=== PATIENT | female | born 1965 | race Hispanic/Latino ===

== ENCOUNTER 2020-04-08 13:53 | Emergency (ER) | payer MEDICARE ==
[2020-04-08 15:10] LABS: Basophils # (Auto) 0.1 K/mm3 (0.0-0.1); Basophils % (Auto) 0.9 % (0.0-1.8); Eosinophils # (Auto) 0.2 K/mm3 (0.0-0.4); Eosinophils % (Auto) 2.6 % (0.0-4.3); Hematocrit 40.1 % (30.3-42.9); Hemoglobin 13.1 gm/dl (10.1-14.3); Lymphocytes # (Auto) 2.8 K/mm3 (1.2-5.4); Lymphocytes % (Auto) 43.4 % (13.4-35.0); Mean Corpuscular HGB Conc 33 % (30-34); Mean Corpuscular Volume 103 fl (79-97); Monocytes # (Auto) 0.4 K/mm3 (0.0-0.8); Monocytes % (Auto) 6.4 % (0.0-7.3); Platelet Count 563 K/mm3 (140-440); Red Blood Count 3.88 M/mm3 (3.65-5.03)
[2020-04-08 16:02] LABS: BUN/Creatinine Ratio 15; Blood Urea Nitrogen 12 mg/dL (7-17); Calcium 9.4 mg/dL (8.4-10.2); Hemolysis Index 5
--- NOTE | 2020-04-08 17:01 | Event Note ---
ED Screening Note Date of service: 04/08/20 Time: 17:00 ED Screening Note: Patient presents via EMS for psych eval She is hyperverbal and appears to be in a manic state She complains of diffuse body aches due to falls over many years No specific joint tenderness is noted on exam This initial assessment/diagnostic orders/clinical plan/treatment(s) is/are subject to change based on patients health status, clinical progression and re- assessment by fellow clinical providers in the ED. Further treatment and workup at subsequent clinical providers discretion. Patient/guardian urged not to elope from the ED as their condition may be serious if not clinically assessed and managed. Initial orders include: Labs Mental health eval
[2020-04-09 07:59] LABS: Amphetamine Screen,Urine Negative; Benzodiazepines Screen,Urine Negative; Cocaine Screen,Urine Negative; Methadone Screen,Urine Negative; Opiate Screen,Urine Negative
[2020-04-09 08:07] LABS: Bilirubin,Urine NEG (Negative); Blood,Urine NEG (Negative); Color,Urine Yellow (Yellow); Mucus,Urine FEW /HPF; Protein,Urine <15 mg/dL mg/dL (Negative); Urobilinogen,Urine < 2.0 mg/dL (<2.0)
[2020-04-09 08:14] LABS: Cannabinoid Screen,Urine Positive
--- NOTE | 2020-04-09 12:54 | Emergency Department Report ---
HPI - General Chief Complaint: Psych Time Seen by Provider: 04/08/20 17:00 - HPI HPI: 55-year-old female presents to the emergency department via EMS, from the house where she rents a room, with a complaint of being out of her medications over the past few days. Patient says that she called for EMS but EMS report says that they found the patient manic and that she was sent in for some irate behavior. The patient says that she was previously on Paxil, Klonopin, and Ambien and that she was "cut off like a crackhead", but I am unsure who cut her off. Patient says that she gets her medications from her family physician, Dr. Yordan Naylor, but she has been unable to get in to see them. She denies any hallucinations, suicidal or homicidal ideations. She has a past medical history of PTSD, and Depression. ED Past Medical Hx - Past Medical History Previous Medical History?: Yes Hx Psychiatric Treatment: Yes (PTSD, depression) - Surgical History Past Surgical History?: No - Social History Smoking Status: Current Every Day Smoker - Medications Home Medications: Home Medications Medication Instructions Recorded Confirmed Last Taken Type Ambien 10 mg PO HS 04/09/20 04/09/20 Unknown History Omeprazole Magnesium [PriLOSEC Otc] 20 mg PO BID 04/09/20 04/09/20 Unknown History Paxil 40 mg PO DAILY 04/09/20 04/09/20 Unknown History ED Review of Systems ROS: Stated complaint: PSYCH Other details as noted in HPI Comment: All other systems reviewed and negative Constitutional: denies: chills, fever Eyes: denies: eye pain, vision change Respiratory: denies: cough, shortness of breath Cardiovascular: denies: chest pain, palpitations Gastrointestinal: denies: abdominal pain, vomiting Genitourinary: denies: dysuria, discharge Neurological: denies: headache, weakness Psychiatric: anxiety, depression. denies: homicidal thoughts, suicidal thoughts Physical Exam - Physical Exam Vital Signs: Vital Signs 04/08/20 04/09/20 14:18 07:21 Temperature 98 F 97.8 F Pulse Rate 95 H 106 H Respiratory 20 18 Rate Blood Pressure 122/77 127/70 O2 Sat by Pulse 95 97 Oximetry Physical Exam: GENERAL: The patient is well-developed well-nourished. HENT: Normocephalic. Atraumatic. Patient has moist mucous membranes. EYES: Extraocular motions are intact. NECK: Supple. Trachea is midline. CHEST/LUNGS: Clear to auscultation. There is no respiratory distress noted. HEART/CARDIOVASCULAR: Regular. There is no tachycardia. There is no murmur. ABDOMEN: Abdomen is soft, nontender. Patient has normal bowel sounds. SKIN: Skin is warm and dry. NEURO: The patient is awake, alert, and oriented. The patient is cooperative. Normal speech. MUSCULOSKELETAL: There is no tenderness or deformity. There is no limitation range of motion. PSYCH: Patient has some pressured speech and tangential thoughts. ED Course Vital Signs 04/08/20 04/09/20 14:18 07:21 Temperature 98 F 97.8 F Pulse Rate 95 H 106 H Respiratory 20 18 Rate Blood Pressure 122/77 127/70 O2 Sat by Pulse 95 97 Oximetry ED Medical Decision Making - Lab Data Result diagrams: 04/08/20 14:48 04/08/20 14:48 Lab Results 04/08/20 04/08/20 04/08/20 Range/Units 14:48 14:48 14:48 WBC (4.5-11.0) K/mm3 RBC (3.65-5.03) M/mm3 Hgb (10.1-14.3) gm/dl Hct (30.3-42.9) % MCV (79-97) fl MCH (28-32) pg MCHC (30-34) % RDW (13.2-15.2) % Plt Count (140-440) K/mm3 Lymph % (Auto) (13.4-35.0) % [place] % (Auto) (0.0-7.3) % Eos % (Auto) (0.0-4.3) % Baso % (Auto) (0.0-1.8) % Lymph # (Auto) (1.2-5.4) K/mm3 [place] # (Auto) (0.0-0.8) K/mm3 Eos # (Auto) (0.0-0.4) K/mm3 Baso # (Auto) (0.0-0.1) K/mm3 Seg Neutrophils % (40.0-70.0) % Seg Neutrophils # (1.8-7.7) K/mm3 Sodium 136 L (137-145) mmol/L Potassium 4.1 (3.6-5.0) mmol/L Chloride 100.3 (98-107) mmol/L Carbon Dioxide 28 (22-30) mmol/L Anion Gap 12 mmol/L BUN 12 (7-17) mg/dL Creatinine 0.8 (0.6-1.2) mg/dL Estimated GFR > 60 ml/min BUN/Creatinine Ratio 15 % Glucose 95 (65-100) mg/dL Calcium 9.4 (8.4-10.2) mg/dL Urine Color (Yellow) Urine Turbidity (Clear) Urine pH (5.0-7.0) Ur Specific [place] (1.003-1.030) Urine Protein (Negative) mg/dL Urine Glucose (UA) (Negative) mg/dL Urine Ketones (Negative) mg/dL Urine Blood (Negative) Urine Nitrite (Negative) Urine Bilirubin (Negative) Urine Urobilinogen (<2.0) mg/dL Ur Leukocyte Esterase (Negative) Urine WBC (Auto) (0.0-6.0) /HPF Urine RBC (Auto) (0.0-6.0) /HPF U Epithel Cells (Auto) (0-13.0) /HPF Urine Mucus /HPF Salicylates < 0.3 L (2.8-20.0) mg/dL Urine Opiates Screen Urine Methadone Screen Acetaminophen 9.8 L (10.0-30.0) ug/mL Ur Barbiturates Screen Ur Phencyclidine Scrn Ur Amphetamines Screen U Benzodiazepines Scrn Urine Cocaine Screen U Marijuana (THC) Screen Drugs of Abuse Note Plasma/Serum Alcohol (0-0.07) % 04/08/20 04/08/20 04/08/20 Range/Units 14:48 14:48 Unknown WBC 6.4 (4.5-11.0) K/mm3 RBC 3.88 (3.65-5.03) M/mm3 Hgb 13.1 (10.1-14.3) gm/dl Hct 40.1 (30.3-42.9) % MCV 103 H (79-97) fl MCH 34 H (28-32) pg MCHC 33 (30-34) % RDW 15.0 (13.2-15.2) % Plt Count 563 H (140-440) K/mm3 Lymph % (Auto) 43.4 H (13.4-35.0) % [place] % (Auto) 6.4 (0.0-7.3) % Eos % (Auto) 2.6 (0.0-4.3) % Baso % (Auto) 0.9 (0.0-1.8) % Lymph # (Auto) 2.8 (1.2-5.4) K/mm3 [place] # (Auto) 0.4 (0.0-0.8) K/mm3 Eos # (Auto) 0.2 (0.0-0.4) K/mm3 Baso # (Auto) 0.1 (0.0-0.1) K/mm3 Seg Neutrophils % 46.7 (40.0-70.0) % Seg Neutrophils # 3.0 (1.8-7.7) K/mm3 Sodium (137-145) mmol/L Potassium (3.6-5.0) mmol/L Chloride (98-107) mmol/L Carbon Dioxide (22-30) mmol/L Anion Gap mmol/L BUN (7-17) mg/dL Creatinine (0.6-1.2) mg/dL Estimated GFR ml/min BUN/Creatinine Ratio % Glucose (65-100) mg/dL Calcium (8.4-10.2) mg/dL Urine Color Yellow (Yellow) Urine Turbidity Hazy (Clear) Urine pH 5.0 (5.0-7.0) Ur Specific [place] 1.019 (1.003-1.030) Urine Protein <15 mg/dl (Negative) mg/dL Urine Glucose (UA) Neg (Negative) mg/dL Urine Ketones Neg (Negative) mg/dL Urine Blood Neg (Negative) Urine Nitrite Neg (Negative) Urine Bilirubin Neg (Negative) Urine Urobilinogen < 2.0 (<2.0) mg/dL Ur Leukocyte Esterase Neg (Negative) Urine WBC (Auto) 5.0 (0.0-6.0) /HPF Urine RBC (Auto) 3.0 (0.0-6.0) /HPF U Epithel Cells (Auto) 16.0 H (0-13.0) /HPF Urine Mucus Few /HPF Salicylates (2.8-20.0) mg/dL Urine Opiates Screen Urine Methadone Screen Acetaminophen (10.0-30.0) ug/mL Ur Barbiturates Screen Ur Phencyclidine Scrn Ur Amphetamines Screen U Benzodiazepines Scrn Urine Cocaine Screen U Marijuana (THC) Screen Drugs of Abuse Note Plasma/Serum Alcohol < 0.01 (0-0.07) % 04/08/20 Range/Units Unknown WBC (4.5-11.0) K/mm3 RBC (3.65-5.03) M/mm3 Hgb (10.1-14.3) gm/dl Hct (30.3-42.9) % MCV (79-97) fl MCH (28-32) pg MCHC (30-34) % RDW (13.2-15.2) % Plt Count (140-440) K/mm3 Lymph % (Auto) (13.4-35.0) % [place] % (Auto) (0.0-7.3) % Eos % (Auto) (0.0-4.3) % Baso % (Auto) (0.0-1.8) % Lymph # (Auto) (1.2-5.4) K/mm3 [place] # (Auto) (0.0-0.8) K/mm3 Eos # (Auto) (0.0-0.4) K/mm3 Baso # (Auto) (0.0-0.1) K/mm3 Seg Neutrophils % (40.0-70.0) % Seg Neutrophils # (1.8-7.7) K/mm3 Sodium (137-145) mmol/L Potassium (3.6-5.0) mmol/L Chloride (98-107) mmol/L Carbon Dioxide (22-30) mmol/L Anion Gap mmol/L BUN (7-17) mg/dL Creatinine (0.6-1.2) mg/dL Estimated GFR ml/min BUN/Creatinine Ratio % Glucose (65-100) mg/dL Calcium (8.4-10.2) mg/dL Urine Color (Yellow) Urine Turbidity (Clear) Urine pH (5.0-7.0) Ur Specific [place] (1.003-1.030) Urine Protein (Negative) mg/dL Urine Glucose (UA) (Negative) mg/dL Urine Ketones (Negative) mg/dL Urine Blood (Negative) Urine Nitrite (Negative) Urine Bilirubin (Negative) Urine Urobilinogen (<2.0) mg/dL Ur Leukocyte Esterase (Negative) Urine WBC (Auto) (0.0-6.0) /HPF Urine RBC (Auto) (0.0-6.0) /HPF U Epithel Cells (Auto) (0-13.0) /HPF Urine Mucus /HPF Salicylates (2.8-20.0) mg/dL Urine Opiates Screen Negative Urine Methadone Screen Negative Acetaminophen (10.0-30.0) ug/mL Ur Barbiturates Screen Negative Ur Phencyclidine Scrn Negative Ur Amphetamines Screen Negative U Benzodiazepines Scrn Negative Urine Cocaine Screen Negative U Marijuana (THC) Screen Positive Drugs of Abuse Note Disclamer Plasma/Serum Alcohol (0-0.07) % - Medical Decision Making This patient initially presented, about 24 hours ago, with complaint of being out of her medications for the past 5 days with a history of bipolar disorder and schizophrenia. Patient admits to auditory and visual hallucinations. She denies any suicidal or homicidal ideations. Between my examination, as well as the examination by the psychiatric piano case maker Rebecca, the patient has started to display acute psychosis. She has some pressured speech, rambling tangential thoughts. The patient is seen responding to internal stimuli. For this reason the patient has been made a 1013. Labs have been unremarkable including CBC, metabolic panel, blood alcohol level, urinalysis and UDS. Vital signs reassuring throughout her ED course thus far including being afebrile. The patient is medically cleared for psychiatric placement. Critical Care Time: No Critical care attestation.: If time is entered above; I have spent that time in minutes in the direct care of this critically ill patient, excluding procedure time. ED Disposition Clinical Impression: Acute psychosis Disposition: DC/TX-65 PSY HOSP/PSY UNIT Is pt being admited?: No Condition: Stable Additional Instructions: OUTPATIENT MENTAL HEALTH RESOURCES [facility], [facility] Lazaro Hernandez MD: [address] [place] [address] [place] [address] [place] [address] [facility]: [employer] [address] [place] [address] [place] [phone] [facility]: [facility]: [address] [facility] [place] [address] [facility] [id number] [facility]: Kingsley Goldstein MD: [id number] [facility] [place] [address] [facility] [id number] [facility]: [address] [place] [phone] [place] CRISIS AND ACCESS LINE: Time of Disposition: 18:34
[2020-04-09] MEDS ORDERED: PAXIL 40 MG PO SCH (16:30)
[2020-04-09] MEDS ORDERED: PARoxetine 20 MG TAB PO SCH (17:00)
[2020-04-09] MEDS ORDERED: ACETAMINOPHEN 325 MG TAB PO ONE (17:36)
[2020-04-09] MEDS ORDERED: NON-FORMULARY EACH (Omeprazole Magnesium [Prilosec Otc] 20 MG Tablet.Dr) PO SCH (22:00)
[2020-04-09] MEDS: PANTOPRAZOLE 20 MG TAB PO SCH (23:00)
[2020-04-10 02:30] VITALS: BP 110/66
--- NOTE | 2020-04-10 10:39 | Consultation ---
History of Present Illness - Reason for Consult Consult date: 04/10/20 Reason for consult: MHE Requesting physician: DORIAN DEVRIES - History of Present Psychiatric Illness Per ED Provider: 55-year-old female presents to the emergency department via EMS, from the house where she rents a room, with a complaint of being out of her medications over the past few days. Patient says that she called for EMS but EMS report says that they found the patient manic and that she was sent in for some irate behavior. The patient says that she was previously on Paxil, Klonopin, and Ambien and that she was "cut off like a crackhead", but I am unsure who cut her off. Patient says that she gets her medications from her family physician, Dr. Yordan Naylor, but she has been unable to get in to see them. She denies any hallucinations, suicidal or homicidal ideations. She has a past medical history of PTSD, and Depression. PSYCH HPI Patient is a 55-year-old, unemployed currently on SSI female who resides in an apartment where she rents with past medical history of manic depression and PTSD who presents to the ED with chief complaint of being currently out of her medication. Patient reports she is to be on Paxil, Klonopin and Ambien and was recently cut off by provider/ mar, patient unable to disclose reason to me why that happened. Patient reports since being here, she has not been able to smoke, does not want a nicotine patch because she came in here voluntarily and she should be allowed to smoke and be discharged history of being held here for over 24-hours she does not like to which she has been treated because she thinks is abusive and her needs are not being addressed. Patient reports she is able to make her own decisions at this moment and would like if her medications are renewed or be sent to [facility] where she can smoke and have a meds refilled. PAST PSYCHIATRIC HISTORY Diagnoses: Manic depression, PTSD Suicide attempts or Self-harm behavior: none reported Prior psychiatric hospitalizations: yes Substance Abuse history: Debra Previous psychiatric medications tried: Paxil, clonapem and ambien Outpatient treatment: disocntinued by provider PAST MEDICAL HISTORY: none reported Family Psychiatric History: None reported or documented SOCIAL HISTORY Marital Status: Living Arrangements: rent own place Employment Status: SSI Access to guns/weapons: none reported Education: 12 grade History of Abuse: none reported Legal History: yes REVIEW OF SYSTEMS Constitutional: Negative for weight loss ENT: Negative for stridor Respiratory: Negative for cough or hemoptysis All other systems reviewed and are negative MENTAL STATUS EXAMINATION General Appearance and Behavior: Age appropriate, good hygiene, wearing appropriate clothes, good eye contact, cooperative polite with questioning. Cooperation: Participating/engaged Psychomotor Behavior: Psychomotor agitation Mood: Good Affect and affective range: dysthymic Thought Process: logical Thought Content: within reality Speech: pressured, loud volume at times Intellectual Functioning: Average Suicidal Ideation: Denies SI Homicidal Ideation: Denies HIl Impulse Control: Impaired Insight and Judgment: Limited insight and judgment Memory: Normal Attention: Divided attention impaired Orientation: Alert, oriented, Diagnoses: Assessment and Plan - Psychiatric problem (1) Substance induced mood disorder Current Visit: Yes Status: Acute (2) Manic depressive reaction Current Visit: Yes Status: Acute Treatment Plan Patient expressed she only wants her meds refill, she came in here voluntarily after she called ems. Pt states aware her benzodiazepam medications wont be refilled and pt is displeased but agreeable. Informed pt she would need outpt provider set up and will be given medications. MEDICATIONS: Risks, benefits and alternatives of medications discussed with the patient, questions answered and consent obtained from patient. PSYCHOTHERAPY: Supportive psychotherapy provided MEDICAL: Per primary team DELIRIUM PRECAUTIONS: Please re-orient patient frequently, keep lights on during the day, and minimize benzodiazepines and opiates as these medications could worsen patient's confusion. MORTGAGE ORIGINATOR: DISPOSITION: Do Not Recommend acute inpatient psychiatric hospitalization at this time. Case discussed with Dr. Rios who agrees with current disposition LEGAL STATUS: 1013 rescinded FOLLOW-UP: Will follow Thank you for the consult. Please contact with any questions and/or concerns. Medications and Allergies Allergies Allergy/AdvReac Type Severity Reaction Status Date / Time No Known Allergies Allergy Unverified 04/08/20 14:01 Home Medications Medication Instructions Recorded Confirmed Last Taken Type Ambien 10 mg PO HS 04/09/20 04/09/20 Unknown History Omeprazole Magnesium [PriLOSEC Otc] 20 mg PO BID 04/09/20 04/09/20 Unknown History Paxil 40 mg PO DAILY 04/09/20 04/09/20 Unknown History Active Meds: Active Medications Pantoprazole Sodium (Pantoprazole 20 Mg Tab) 20 mg PO BID [facility] Last Admin: 04/09/20 23:00 Dose: 20 mg Documented by: Paroxetine HCl (Paroxetine 20 Mg Tab) 40 mg PO DAILY [facility] Last Admin: 04/09/20 17:54 Dose: 40 mg Documented by: Mental Status Exam - Vital signs Last Vital Signs Temp 98.1 F 04/10/20 02:28 Pulse 98 H 04/10/20 02:28 Resp 18 04/10/20 02:28 BP 110/66 04/10/20 02:28 Pulse Ox 97 04/10/20 02:28 Results Result Diagrams: 04/08/20 14:48 04/08/20 14:48 All other labs normal. Assessment and Plan - Psychiatric problem (1) Substance induced mood disorder Current Visit: Yes Status: Acute (2) Manic depressive reaction Current Visit: Yes Status: Acute
[2020-04-10] MEDS ORDERED: ACETAMINOPHEN 325 MG TAB PO ONE (12:12)
[2020-04-10] MEDS: PANTOPRAZOLE 20 MG TAB PO SCH (12:16)
== END 2020-04-10 14:00 | disposition home or self-care (01) ==
LOC: ED 13:53
DX: F23 Brief psychotic disorder (principal); Z20.828 Contact with and (suspected) exposure to other viral communicable diseases; F32.9 Major depressive disorder, single episode, unspecified; F17.200 Nicotine dependence, unspecified, uncomplicated; Z79.899 Other long term (current) drug therapy
CPT/HCPCS: 36415; 80048; 80307; 81001; 85025; 99285; U0003; 80320; G0480